=== PATIENT | male | born 1960 | race Caucasian/White ===

== ENCOUNTER → 2017-10-25 | Day surgery (SDC) | payer OTHER ==
[~2017-10-25] MED LIST: HYDROmorphone 2 MG/ML VIAL IV; LIDOCAINE 1% PF 2 ML VIAL. ID; LIDOCAINE 2% PF Vial for OR 5 ML VIAL.; MORPHINE SULFATE 2 MG/ML DISP.SYRIN. IV; ONDANSETRON PF 4 MG/2 ML VIAL. IV; PROCHLORPERAZINE 10 MG/2 ML VIAL. IV; PROPOFOL 20 ML IV; fentaNYL PF VIAL 100 MCG/2 ML VIAL IV
[2017-10-25] MEDS: IV RINGERS,LACTATED 1000ML 1,000 ML IV (09:22)
== END | disposition home or self-care (01) ==
LOC: ENDOS 08:58
DX: K29.50 Unspecified chronic gastritis without bleeding (principal); E03.9 Hypothyroidism, unspecified; G10 Huntington's disease; Z88.0 Allergy status to penicillin; Z88.8 Allergy status to other drugs, medicaments and biological substances; Z79.899 Other long term (current) drug therapy
CPT/HCPCS: 43246; J2704

== ENCOUNTER → 2018-12-23 | Day surgery (SDC) | payer OTHER ==
[~2018-12-23] MED LIST changes: +CETI10TA22 PO; +FOLI1TAB16 PO; +HYDR-3164 PO; -HYDROmorphone 2 MG/ML VIAL IV; +HYDROmorphone 2 MG/ML VIAL IV PRN; +IV RINGERS,LACTATED 1000ML 1,000 ML IV SCH; +LEVO50TA5 PO; -LIDOCAINE 1% PF 2 ML VIAL. ID; +LIDOCAINE 1% PF 2 ML VIAL. ID PRN; -LIDOCAINE 2% PF Vial for OR 5 ML VIAL.; +LORA10TA3 PO; +METH2.5T PO; +MIRT30TA PO; +MIRT45TA PO; -MORPHINE SULFATE 2 MG/ML DISP.SYRIN. IV; +MORPHINE SULFATE 4 MG/ML VIAL. IV PRN; -ONDANSETRON PF 4 MG/2 ML VIAL. IV; +ONDANSETRON PF 4 MG/2 ML VIAL. IV PRN; -PROCHLORPERAZINE 10 MG/2 ML VIAL. IV; +PROCHLORPERAZINE 10 MG/2 ML VIAL. IV PRN; -PROPOFOL 20 ML IV; +PROPOFOL 20 ML IV ONE; -fentaNYL PF VIAL 100 MCG/2 ML VIAL IV; +fentaNYL PF VIAL 100 MCG/2 ML VIAL IV PRN
[2018-12-23 17:04] VITALS: BP 112/67
--- NOTE | 2018-12-24 04:58 | CONS ---
DATE OF CONSULTATION: 12/23/2018 REASON FOR CONSULTATION: Oropharyngeal dysphagia, history of Naa's chorea. HISTORY OF PRESENT ILLNESS: This is a 58-year-old male, whose past medical history is significant for Dayton's chorea and hypothyroidism, is seen for PEG replacement as he had the tube in now for several years. It began to have increased difficulties with functioning and is here for replacement. The patient otherwise is rather pleasant. He has no additional complaints at this time. PAST MEDICAL HISTORY: Dayton's chorea, hypothyroidism. ALLERGIES: CARBAPENEM, CEPHALOSPORINS, AMPICILLIN AND AZTREONAM. MEDICATIONS: Include acetaminophen, cetirizine, folic acid, loratadine, methotrexate and Remeron. SOCIAL HISTORY: He is incarcerated. Does not drink or smoke at this time. FAMILY HISTORY: Noncontributory. REVIEW OF SYSTEMS: Per records. PHYSICAL EXAMINATION: GENERAL: Reveals a well-nourished, well-developed male. VITAL SIGNS: Temperature 97, pulse 88, respiratory rate is 18. HEENT: Normocephalic and atraumatic head. Pupils and extraocular muscles are not tested. Sclerae anicteric. NECK: Supple. LUNGS: Clear. CARDIOVASCULAR: Reveals an S1, S2 without S3, S4 or appreciable murmur. ABDOMEN: Soft abdomen with intact G-tube in the left upper quadrant with marked muscle wasting. Normoactive bowel sounds. IMPRESSION: Dayton's chorea with oropharyngeal dysphagia, dysfunctional G-tube. We will recommend EGD with PEG replacement. Risks and benefits have been discussed including risk of hemorrhage and perforation. The patient is willing to proceed. New antibiotics will tentatively be planned to be utilized as new G-tube will be placed in the present stoma. WINSOME CRANE MD DR: ANTHONY/fabiana JOB#: [id number] / [id number]
== END | disposition home or self-care (01) ==
LOC: ENDOS 15:17 → EEVIPCON 16:30
PROVIDERS: ATTEND Internal Medicine Gastroenterology
DX: K94.23 Gastrostomy malfunction (principal); K29.50 Unspecified chronic gastritis without bleeding; E03.9 Hypothyroidism, unspecified; G10 Huntington's disease; Z88.1 Allergy status to other antibiotic agents; Z88.8 Allergy status to other drugs, medicaments and biological substances; Z79.899 Other long term (current) drug therapy; Y83.8 Other surgical procedures as the cause of abnormal reaction of the patient, or of later complication, without mention of misadventure at the time of the procedure
CPT/HCPCS: 43246; J2704